=== PATIENT | female | born 2000 | race African-American/Black ===

== ENCOUNTER 2023-01-28 00:37 | Emergency (ER) | payer MEDICAID, SELFPAY ==
--- NOTE | 2023-01-28 00:41 | ED.SOB ---
HPI - SOB/Dyspnea General Time Seen by Provider: 00:41 Date Seen: 01/28/23 Chief Complaint: Shortness of Breath/Dyspnea Stated Complaint: trouble breathing Time Seen by Provider: 01/28/23 00:42 Source: patient, RN notes reviewed and old records reviewed Mode of arrival: ambulatory Limitations: no limitations History of Present Illness HPI Narrative: 22-year-old female with history of asthma who comes in today with concerns of increased shortness of breath. Breathing got a little bit worse today, also increased cough and some runny nose. Denies fever, chest pain, lower extremity swelling. Does not have any albuterol at home. Related Data Home Medications Medication Instructions Recorded Confirmed albuterol sulfate 90 mcg/actuation 1 - 2 puff inhalation Q4-6H PRN 01/28/23 01/28/23 aerosol inhaler (Ventolin HFA) Allergies Allergy/AdvReac Type Severity Reaction Status Date / Time No Known Drug Allergies Allergy Verified 01/07/23 15:15 Exam Narrative: Exam Narrative: General: Well-developed and well-nourished, no acute distress Head: Atraumatic and normocephalic Eyes: Pupils are equal reactive, extraocular motions intact, conjunctiva clear ENT: External nose and ears are normal, posterior pharynx without erythema or exudate Neck: No midline cervical tenderness, full spontaneous range of motion the neck, trachea midline, no adenopathy Heart: Regular rate and rhythm no murmurs or thrills Lungs: Clear to auscultation bilaterally without wheezes or crackles. Occasional nonproductive cough, prolonged expiratory phase Abdomen: Soft, nontender, nondistended with active bowel sounds Musculoskeletal: No tenderness, deformity, or edema Neurologic: Awake, alert, and oriented x3, no gross focal neurologic deficits, cranial nerves intact as tested Psych: Mood and affect are appropriate Skin: No rashes Const: Vital Signs, click to edit/add: Vital Signs - 24 hr 01/28/23 00:43 Temperature 98.0 F Pulse Rate [Right Pulse Oximeter] 87 Respiratory Rate 18 Blood Pressure [Ri ght Upper Arm] 126/78 Pulse Oximetry 100 Oxygen Delivery Me thod Room Air Course Course ED Course: Patient seen and examined, she reviewed prior urgent care visit from December 2022 when patient was seen with asthma exacerbation. Patient presents today with shortness of breath, upper respiratory symptoms. No wheezing on exam and oxygen saturation 100% but does have prolonged expiratory phase and nonproductive cough. DuoNeb given in the emergency department and prednisone for home. Vital Signs Vital signs: Initial Vital Signs Temperature 98.0 F 01/28/23 00:43 Temperature Source Temporal Artery Scan 01/28/23 00:43 Pulse Rate 87 01/28/23 00:43 Respiratory Rate 18 01/28/23 00:43 Blood Pressure 126/78 01/28/23 00:43 Blood Pressure Mean 94 01/28/23 00:43 Blood Pressure Position Sitting 01/28/23 00:43 Pulse Oximetry 100 01/28/23 00:43 Oxygen Delivery Method Room Air 01/28/23 00:43 Vital Signs Temperature 98.0 F 01/28/23 00:43 Pulse Rate 87 01/28/23 00:43 Respiratory Rate 18 01/28/23 00:43 Blood Pressure 126/78 01/28/23 00:43 Pulse Oximetry 100 01/28/23 00:43 Oxygen Delivery Method Room Air 01/28/23 00:43 Temperature 98.0 F 01/28/23 00:43 Pulse Rate 87 01/28/23 00:43 Respiratory Rate 18 01/28/23 00:43 Blood Pressure 126/78 01/28/23 00:43 Pulse Oximetry 100 01/28/23 00:43 Oxygen Delivery Method Room Air 01/28/23 00:43 Medications Administered Medications: Generic Name Dose Route Start Last Admin Trade Name Freq PRN Reason Stop Dose Admin Albuterol/Ipratropium 1 neb 01/28/23 01:06 01/28/23 01:11 Iprat-Albut 0.5-2.5 Mg/3 Ml Neb IH 01/28/23 01:07 1 neb ONCE ONE Administration Prednisone 40 mg 01/28/23 01:07 01/28/23 01:11 Prednisone 20 Mg Tablet PO 01/28/23 01:08 40 mg ONCE ONE Administration Discharge Plan Discharge Clinical Impression: Asthma with acute exacerbation Patient Disposition: Home, Self-Care Condition: Stable Instructions: Asthma (DC) Additional Instructions: Start prednisone Wednesday morning Albuterol 2 puffs every 2 hours while awake for 24 hours, then 2 puffs every 3 hours while awake for 24 hours, then 2 puffs every 4 hours as needed Activity Level: No Restrictions Discharge Diet: Regular Prescriptions: No Action albuterol sulfate [Ventolin HFA] 90 mcg/actuation HFA aerosol inhaler 1 - 2 puff inhalation Q4-6H PRN Follow Up/Referrals: Provider,Not a Local [Primary Care Provider] - Stand Alone Forms: [employer] Info Instructions
[2023-01-28 00:43] VITALS: BP 126/78; PULSE 87; RESP 18; TEMP 36.7; O2SAT 100; BMI 25.8
[2023-01-28] MEDS: predniSONE 20 MG TABLET 40 MG PO (01:11)
[2023-01-28] MEDS: IPRAT-ALBUT 0.5-2.5 MG/3 ML NEB 1 NEB IH (01:11)
[2023-01-28 01:39] VITALS: BP 115/74; PULSE 84; RESP 18; TEMP 36.8; O2SAT 100
[2023-01-28 01:40] VITALS: BP 115/74; PULSE 84; RESP 18; TEMP 36.8
== END 2023-01-28 01:40 | disposition home or self-care (01) ==
LOC: ED 01:16
PROVIDERS: Emergency Provider Family Medicine
DX: J45.901 Unspecified asthma with (acute) exacerbation (principal)
CPT/HCPCS: 94640; 99283; 99284; J7512

== ENCOUNTER 2024-01-26 15:32 | Outpatient (CLI) | payer OTHER, SELFPAY ==
[2024-01-26 16:21] LABS: Ur HCG Qualitative* Negative (Negative)
[2024-01-26 16:59] LABS: Alanine Aminotransferase* 13 U/L (4-35); Aspartate Amino Transferase* 25 U/L (12-35); Cholesterol* 276 mg/dL (90-199); Triglycerides* 94 mg/dL (40-149)
[2024-01-26 17:00] LABS: HDL Cholesterol* 77 mg/dL (>=50); LDL Cholesterol Calculated 180 mg/dL (<100)
== END 2024-01-26 15:33 | disposition home or self-care (01) ==
LOC: LAB 15:34
PROVIDERS: Visit Provider Dermatology
DX: Z79.899 Other long term (current) drug therapy (principal)
CPT/HCPCS: 36415; 80061; 81025; 84450; 84460

== ENCOUNTER 2024-07-20 11:02 | Outpatient (CLI) | payer OTHER, SELFPAY ==
[2024-07-20 15:14] LABS: Bacterial Vaginosis* Negative (Negative); Candida glab/krus NOT DETECTED (No Detected); Candida species NOT DETECTED (No Detected); Trichomonas vaginalis NOT DETECTED (No Detected)
== END 2024-07-20 11:03 | disposition home or self-care (01) ==
LOC: NFLDREF 11:02
PROVIDERS: Visit Provider Physician Assistant
DX: N89.8 Other specified noninflammatory disorders of vagina (principal)
CPT/HCPCS: 81513; 87481; 87661